=== PATIENT | female | born 1965 | race Caucasian/White ===

== ENCOUNTER → 2019-06-28 | Outpatient (CLI) | payer BC ==
[~2019-06-28] MED LIST: ATOR10TA60 PO; BUPIVACAINE MPF 0.25% 10 ML VIAL. ONE; ESTR1CAP PO; GLUC1CAP78 PO; IBUP200C9 PO; IOHEXOL 180 MG/ML 10 ML VIAL. ONE; LACT1CAP6 PO; MULT-245 PO; TRAM50TA PO; TURM500C4 PO; methylPREDNISolone ACETATE 80 MG/ML VIAL. ONE
--- NOTE | 2019-06-28 10:34 | PAIN ---
DATE OF SERVICE: 06/28/2019 INITIAL CONSULTATION FOR PAIN CLINIC CHIEF COMPLAINT: Bilateral hip joint pain. HISTORY OF PRESENT ILLNESS: This is a 54-year-old female who presents with history of pain for about 3 years, increasing, worse over the past 2 years in the bilateral hips, especially on the left side greater than right, but present bilaterally. The patient reports no specific injury or action that she is aware of, which is gradually increased over time, worse with walking, standing, changing positions, especially getting up from a seated position. The patient reports it awakens her from sleep about 3-4 times a night, does not affect her bowel or bladder control, but does affect her ability to walk significantly. She is not using any assistive devices, however. The patient has had physical therapy in 06/2017, which was helpful at that time, but did not have any long lasting effects. The patient has been doing exercises, stretching and strengthening on her own, also taking tramadol and Advil p.r.n., which does help decrease pain by about 20%. The patient reports no loss of motor function, but significant pain, especially in the groin and the gluteus regions, more on the left than the right, worse again with walking and changing positions. The patient did have x-rays of the bilateral hips with her orthopedic surgeon showing severe primary osteoarthritis of the left hip, moderate primary degenerative osteoarthritis of the right hip joint. The patient reports no loss of motor function. She describes the pain as constant and sharp, throbbing and stabbing, radiating in the groin as well, worse with putting all the weight on one leg such as climbing stairs or climbing up on a step or stool as well. The patient reports no loss of motor function in the lower extremities, but significant fatigability, especially with the left leg. PAST MEDICAL HISTORY: Significant for arthritis. PREVIOUS SURGERY: No previous surgeries. The patient has been in good health otherwise. MEDICATIONS: List includes atorvastatin, tramadol, turmeric, estradiol, probiotics, glucosamine, Advil and multivitamins. ALLERGIES: The patient has no known drug allergies. FAMILY HISTORY: Significant for no major medical problems or conditions that she is aware of. SOCIAL HISTORY: The patient does not drink alcohol, does not smoke. Denies any illegal, illicit or recreational drugs. 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 REVIEW OF SYSTEMS: The patient's review of systems is positive for those items mentioned in history of present illness. All systems reviewed and otherwise negative. It is complete, full and well documented on the patient's chart. PHYSICAL EXAMINATION: VITAL SIGNS: The patient's blood pressure is 187/120, pulse 83, respirations are 18, temperature 98.1 degrees Fahrenheit. The patient's height is 5 feet 6 inches, weight is 245 pounds. GENERAL: The patient is awake, alert, oriented, appropriate, very pleasant demeanor. HEENT: Head shows normocephalic, atraumatic. Extraocular movements are intact and symmetrical. Oral cavity: Mucous membranes moist and pink. Dentition is intact. NECK: Shows anterior throat supple without palpable lymphadenopathy noted. Swallow reflex symmetrical. CHEST: Shows normal on inspection. Breath sounds are clear bilaterally. HEART: Shows S1, S2 clear. No murmurs auscultated. ABDOMEN: Soft, nontender, nondistended. No palpable organomegaly is noted. No rebound or guarding demonstrated. BACK: Shows spine grossly in the midline, normal-appearing cervical lordotic curvature, thoracic kyphotic curvature and lumbar lordotic curvature. The patient has good rotational motion of both the cervical spine laterally as well as extension and flexion without difficulty. Lumbar spine shows good rotation, greater than 10 degrees right and left as well as extension greater than 10 degrees, forward flexion 45 degrees without significant pain or exacerbation of symptoms. The patient's paraspinous musculature in the lumbar distribution shows symmetrical, on palpation shows some moderate tenderness, but only diffusely in the low lumbar distribution. No tenderness over the spinous processes, sacrum or sacroiliac regions. EXTREMITIES: Lower extremities show deep tendon reflexes at 2+ in the patellar, 1+ tendo-calcaneus tendons are equal. Motor exam is strong with 5/5 dorsiflexion, extension, quadriceps and hamstring flexion symmetrical. Peripheral pulses are 1+ posterior tibia. No peripheral edema is noted bilaterally. The patient does have a positive Sb's maneuver bilaterally, much more tender on the left than the right with external rotation of the hip, but present bilaterally with some groin pain on the left side, not the right. The patient is able to stand, stand on her toes without significant difficulty or loss of balance, walks with a slight favoring gait, does appear to favor the left lower extremity to a mild extent, but not using any assistive devices to ambulate. SKIN: Shows warm and dry, good turgor. No edema. No sores, rashes or bruising. IMPRESSION: 1. This is a 54-year-old female with approximate 3-year history of pain in the bilateral hips and groin pain associated. 2. X-rays, bilateral hip joint as noted. 3. History of arthritis. PLAN: Options were discussed with the patient and the patient's spouse who accompanied her visit today and discussed continued physical therapies and interventional techniques as well as medication management. She would like to pursue interventional techniques. We discussed intraarticular hip joint injection using models to describe the procedure. The patient would like to proceed with interventional techniques. We discussed a left intra-articular hip joint today and a right intraarticular hip joint on return. Risks were again discussed including, but not limited to bleeding, infection, possibility of intravascular injection sequelae, spread of local anesthetic and numbness, side effects of steroid medication, exposure to fluoroscopy and poor results regarding pain control. The patient understands and wished to proceed. The patient will return to clinic in approximately 1 week for followup. She was counselled on return appointment, activity level and side effects to be aware of. DIAGNOSES: Bilateral hip joint pain with primary osteoarthritis, bilateral hip joints. PROCEDURE: Left intraarticular hip joint injection using C-arm fluoroscopic guidance under sterile prep and drape using local anesthetic. MEDICATION INJECTED: A total of 3 mL of 0.25% bupivacaine and 80 mg Depo-Medrol as well as 2 mL of contrast. CONDITION AT DISCHARGE: Stable. The patient tolerated procedure well, had no complications. JESUS BURCIAGA MD DR: MELVIN/isaura JOB#: [id number] / [id number] SINDY Mcdaniel
== END | disposition home or self-care (01) ==
LOC: PNCL 09:08
PROVIDERS: ATTEND Anesthesiology
DX: M16.0 Bilateral primary osteoarthritis of hip (principal); Z79.899 Other long term (current) drug therapy; Z98.890 Other specified postprocedural states
CPT/HCPCS: 20610; 77002; J1040; J3490; Q9965

== ENCOUNTER → 2019-07-09 | Outpatient (CLI) | payer BC ==
--- NOTE | 2019-07-10 00:12 | PAIN ---
DATE OF SERVICE: 07/09/2019 PROGRESS NOTE FOR PAIN CLINIC DIAGNOSES: Bilateral hip joint pain with primary osteoarthritis, bilateral hip joint. HISTORY OF PRESENT ILLNESS: The patient is a 54-year-old female who returns for followup status post left intra-articular hip joint injection on 06/28/2019. The patient did very well with about a 95% improvement with left hip. She reports her right hip is significantly painful as it was previously in the left side, which is worse and she wanted to wait to get the right side done after the left. The patient reports she has increased activity with greater ease and comfort, walking greater distances, getting out of the car is easier, standing up from a seated position, but she is noticing pain on the right side much more noticeable now, the left side is doing somewhat better with left pain radiating to the groin as well as into the anterior thigh, lateral thigh and posterior gluteus on the right side, worse with walking, standing, putting all of her weight on her right leg such as stepping on a stair or curb. The patient reports it is becoming more constant, aching with weightbearing, still better with sitting or lying down, does not awaken her from sleep at night. The patient reports the pain is 8 on a scale of 10 at its worst over the past week, 8 on average, 6 at its least and is a 6 today in the right hip and leg itself. The patient reports no new motor or sensory deficits, no new bowel or bladder incontinence. PHYSICAL EXAMINATION: VITAL SIGNS: The patient's blood pressure is 156/102, pulse 87, respirations 18, temperature 98.2 degrees Fahrenheit, height is 5 feet 6 inches, weight is 248 pounds. GENERAL: The patient is awake, alert, oriented, appropriate, very pleasant demeanor. HEENT: Shows normocephalic, atraumatic. Extraocular movements are intact and symmetrical. Oral cavity: Mucous membranes moist and pink. Dentition is intact. NECK: Shows anterior throat is supple without palpable lymphadenopathy noted. Swallow reflex symmetrical. CHEST: Shows normal on inspection. Breath sounds are clear bilaterally. HEART: Shows S1, S2 clear. No murmurs auscultated. ABDOMEN: Soft, nontender, nondistended. BACK: Shows spine grossly in the midline. Normal appearing thoracic kyphosis and lumbar lordotic curvature. The patient has full rotational motion of lumbar spine, both laterally as well as extension and flexion without significant difficulty. No tenderness over the spinous processes, sacrum or sacroiliac regions. EXTREMITIES: Lower extremities show deep tendon reflexes at 2+ in patellar and tendo calcaneus tendons. Motor exam is 5/5 with dorsiflexion, extension, quadriceps and hamstring flexion. The patient's Sb's maneuver is positive on the right and only very mildly positive on the left with very minimal pain with external rotation. Peripheral pulses are 1+ posterior tibia. No peripheral edema is noted. Options were discussed with the patient. The patient's old chart was reviewed as her current medication regimen updated. Current review of systems updated today as well. We will proceed with a right intraarticular hip joint injection today with fluoroscopic guidance. Risks were again discussed including, but not limited to bleeding, infection, possibility of intravascular injection sequelae, spread of local anesthetic and numbness, side effects of steroid medication, exposure to fluoroscopy and poor results regarding pain control. The patient understands and wished to proceed. The patient will return to clinic in approximately 2 weeks for followup. She was counseled on return appointment, activity level and side effects to be aware of. DIAGNOSIS: Right hip joint pain with primary osteoarthritis, right hip joint. PROCEDURE: Right intra-articular hip joint injection using C-arm fluoroscopic guidance under sterile prep and drape using local anesthetic. MEDICATION INJECTED: A total of 3 mL of 0.25% bupivacaine, 80 mg Depo-Medrol and 2 mL of contrast. CONDITION AT DISCHARGE: Stable. The patient tolerated the procedure well, had no complications. JESUS BURCIAGA MD DR: MELVIN/isaura JOB#: [id number] / [id number]
== END ==
LOC: PNCL 14:17
PROVIDERS: ATTEND Anesthesiology
DX: M16.0 Bilateral primary osteoarthritis of hip (principal)
CPT/HCPCS: 20610; 77002; J1040; J3490; Q9965

== ENCOUNTER → 2019-10-19 | Outpatient (CLI) | payer BC ==
--- NOTE | 2019-10-19 11:00 | PAIN ---
DATE OF SERVICE: 10/19/2019 PROGRESS NOTE FOR PAIN CLINIC DIAGNOSES: Bilateral hip joint pain with primary osteoarthritis, bilateral hip joint. HISTORY OF PRESENT ILLNESS: The patient is a 54-year-old female who returns for followup status post bilateral hip joint injections, left hip injected early part of June and then the right hip injected later in June on the . The patient reports that the left hip is doing about 95% better and still significantly improved, right side is only about 40-50% better, was about 80% better for several weeks, but over the past month has become much more painful, just on the right side. The patient reports she is feeling some pain on the left, but it is very minimal. Right side is rated as a 9 on a 10 on a scale of 10 at its worst, 8 on average, 6 at its least and is a 6 today. The patient reports it is worse with walking, standing, changing positions, putting on weight on one leg, stepping upstairs or steps, it is a sharp, stabbing pain, it also radiates into the groin and medial thigh on the right side greater than the left, but occasionally in the left groin. The patient reports it is worse with walking, standing, better with sitting, but is beginning to awaken her from sleep again every 4-6 hours. The patient reports no new motor or sensory deficits, no new bowel or bladder incontinence. PHYSICAL EXAMINATION: VITAL SIGNS: The patient's blood pressure 169/110, pulse 96, respirations 18, temperature 98.9 degrees Fahrenheit, height is 5 feet 6 inches, weight is 235 pounds. GENERAL: The patient is awake, alert, oriented, appropriate, very pleasant demeanor. HEENT: Shows normocephalic, atraumatic. Extraocular movements are intact and symmetrical. Oral cavity shows mucous membranes moist and pink. Dentition is intact. NECK: Shows anterior throat supple without palpable lymphadenopathy noted. Swallow reflex symmetrical. CHEST: Shows normal on inspection. Breath sounds are clear bilaterally. HEART: Shows S1, S2 clear. No murmurs auscultated. ABDOMEN: Obese, but soft, nontender, nondistended. BACK: Shows spine grossly in the midline. Normal appearing thoracic kyphosis and lumbar lordotic curvature. Lumbar paraspinous muscle shows symmetrical on inspection, on palpation shows some mild tenderness diffusely, but only diffusely without significant radiation. The patient has good rotational motion of lumbar spine as well as extension and flexion. EXTREMITIES: The patient's lower extremities show deep tendon reflexes 2+ in the patellar, 1+ tendo-calcaneus tendons. Motor exam is strong with 5/5 dorsiflexion, extension, quadriceps, and hamstring flexion symmetrical. Peripheral pulses are 1+ posterior tibia. No peripheral edema is noted. The patient does have positive Sb's maneuver on the right only with external rotation and posterior displacement of the right hip with significant pain in the posterior hip as well as in the groin. Left side is negative. Options were discussed with the patient. The patient's old chart was reviewed. Her current medication regimen updated. Current review of systems updated today as well. We will proceed with a right sided intra-articular hip joint today with fluoroscopic guidance. Risks were again discussed including, but not limited to bleeding, infection, possibility of intravascular injection sequelae, spread of local anesthetic and numbness, side effects of steroid medication as well as poor results regarding pain control. The patient understands and wished to proceed. The patient will return to clinic in approximately 4 weeks for followup. She was counseled on return appointment, activity level and side effects to be aware of. DIAGNOSIS: Right hip joint pain with primary osteoarthritis, right hip joint. PROCEDURE: Right intraarticular hip joint injection using C-arm fluoroscopic guidance under sterile prep and drape using local anesthetic. MEDICATION INJECTED: A total of 80 mg Depo-Medrol plus 3 mL of 0.25% bupivacaine and 2 mL of contrast. CONDITION AT DISCHARGE: Stable. The patient tolerated the procedure well, had no complications. JESUS BURCIAGA MD DR: MELVIN/isaura JOB#: [id number] / [id number]
== END ==
LOC: PNCL 08:30
PROVIDERS: ATTEND Anesthesiology
DX: M16.0 Bilateral primary osteoarthritis of hip (principal)
CPT/HCPCS: 20610; 77002; J1040; J3490; Q9965